=== PATIENT | male | born 1960 | race Caucasian/White ===

== ENCOUNTER → 2018-12-14 | Outpatient (CLI) | payer OTHER ==
[2018-12-14 07:24] LABS: POTASSIUM 3.9 mmol/L (3.5-5.1)
== END ==
LOC: M.LAB 01:06
PROVIDERS: Student in an Organized Health Care Education/Training Program
DX: E87.6 Hypokalemia (principal)

== ENCOUNTER 2019-06-13 20:34 | Inpatient (IN) | payer OTHER ==
[~2019-06-13] VITALS: Ht 170.2 cm; Wt 124.7 kg
[2019-06-13 20:41] VITALS: BP 197/105
[2019-06-13] MEDS ORDERED: HYDROCHLOROTHIAZIDE (20:45)
[2019-06-13] MEDS ORDERED: LISINOPRIL (20:45)
[2019-06-13] MEDS ORDERED: METFORMIN (20:46)
[2019-06-13] MEDS ORDERED: ATORVASTATIN (20:46)
[2019-06-13] MEDS ORDERED: JARDIANCE SUBQ (20:46)
[2019-06-13 20:58] LABS: ABSOLUTE BASOPHILS 0.1 thou/uL (0.0-0.2); ABSOLUTE EOSINOPHILS 0.3 thou/uL (0.0-0.7); ABSOLUTE LYMPHOCYTES 3.1 thou/uL (0.8-5.3); ABSOLUTE MONOCYTES 0.8 thou/uL (0.0-1.2); ABSOLUTE NEUTROPHILS 3.9 thou/uL (1.6-8.1); BASOPHILS 0.7 %; EOSINOPHILS 3.1 %; HEMOGLOBIN 13.6 gm/dL (14.0-18.0); LYMPHOCYTES 38.2 %; MCH 30.2 pg (26.0-34.0); MCHC 33.9 g/dL (28.0-37.0); MCV 89.2 fL (80.0-100.0); MONOCYTES 9.6 %; MPV 8.2 fl. (7.2-11.1); NUCLEATED RBCS 0 /100WBC; PLATELET COUNT* 277 thou/uL (150-400); POLYS 48.4 %; RBC 4.49 mil/uL (4.50-6.00); RDW-CV 13.6 % (10.5-14.5); WBC 8.1 thou/uL (4.0-11.0)
[2019-06-13 21:08] LABS: PROTIME 9.8 Seconds (9.20-11.50)
[2019-06-13 21:21] LABS: CALCIUM 9.4 mg/dL (8.5-10.1); CREATININE 0.8 mg/dL (0.6-1.3); POTASSIUM 4.1 mmol/L (3.5-5.1)
[2019-06-13 21:32] LABS: ALBUMIN 3.6 g/dL (3.4-5.0); TOTAL BILIRUBIN 0.2 mg/dL (<0.1-1.0); TOTAL PROTEIN 7.1 g/dL (6.4-8.2)
[2019-06-13 22:43] VITALS: BP 189/85
[2019-06-13 23:00] VITALS: BP 139/95
[2019-06-14 04:00] VITALS: BP 149/80
[2019-06-14 08:00] VITALS: BP 145/67
[2019-06-14 09:45] LABS: CHOLESTEROL 245 mg/dL (<200); HDL CHOLESTEROL 35 mg/dL (>40); LDL CHOLESTEROL 176 mg/dL (<100); TRIGLYCERIDE 173 mg/dL (<150); VLDL 35 mg/dL (<40)
[2019-06-14 09:57] LABS: SERUM ASSESSMENT Clear
[2019-06-14 11:57] VITALS: BP 180/97
[2019-06-14 14:22] LABS: AMP/METHAMP Negative (Negative); BARBITURATES Negative (Negative); BENZODIAZEPINES Negative (Negative); COCAINE Negative (Negative); METHADONE Negative (Negative); OPIATES Negative (Negative); PCP Negative (Negative); THC Negative (Negative)
--- NOTE | 2019-06-14 14:48 | NUR ---
Pt out of the room at stress test, will f/u later
[2019-06-14 16:00] VITALS: BP 186/90
--- NOTE | 2019-06-14 18:51 | NUR ---
PT VSS WITH THE EXCEPTION OF HYPERTENSION, SR ON TELE, PT UP AD THA, PT HAD STRESS TEST TODAY, WILL BE NPO AT MIDNIGHT TO COMPLETE RESTING PORTION OF STRESS TEST TOMORROW. HOURLY ROUNDING PERFORMED, POSSESSIONS AND CALL LIGHT WITHIN REACH.
[2019-06-14 20:00] VITALS: BP 179/91
--- NOTE | 2019-06-14 20:00 | NUR ---
RECEIVED REPORT AND ASSUMED CARE OF PT, ASSESSMENT COMPLETED AT THIS TIME. SITTING UP IN CHAIR VISITING WITH . DENIES CHEST PAIN OR OTHER COMPLAINTS. DISCUSSED COMPLETION OF STRESS TEST TOMORROW. MARIXA ANKLES WITH 1+ EDEMA DUE TO DEPENDENCE MOST OF DAY. TELEMETRY ON SHOWING SR. WILL CONT TO MONITOR AND ASSIST NEEDED.
[2019-06-15] VITALS: BP 171/85
[2019-06-15 04:00] VITALS: BP 171/83
[2019-06-15 06:04] LABS: CALCIUM 9.7 mg/dL (8.5-10.1); CREATININE 0.7 mg/dL (0.6-1.3); POTASSIUM 4.3 mmol/L (3.5-5.1)
--- NOTE | 2019-06-15 06:58 | NUR ---
AWAKE MOST OF NIGHT. UNABLE TO SLEEP. NO COMPLAINTS VOICED. ASSESSMENT UNCHANGED. TELEMETRY CONT TO SHOW SR. HS GOALS OF REST AND SAFETY ACHIEVED. HOURLY ROUNDING OBSERVED.
[2019-06-15 08:36] VITALS: BP 134/94
--- NOTE | 2019-06-15 08:39 | EKG ---
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1960 Requested By: Mariella Pope Order Number: [id number] MD: Dm Lozano Measurements Intervals [place] Rate: 95 P: 7 ID: 180 QRS: -11 QRSD: 106 T: 14 QT: 349 QTc: 439 Interpretive Statements Sinus rhythm Inferior infarct, old Delayed R-wave progression Baseline wander in lead(s) V2,V4 Compared to ECG 06/05/2006 08:20:57 Myocardial infarct finding now present Electronically Signed On 06-15-2019 8:38:54 CDT by Dm Lozano [email or web address] <ELECTRONICALLY SIGNED> By: Dm Lozano MD, FACC 06/15/1937 37 37 Dm Lozano MD, FAC /EPI
[2019-06-15 11:49] VITALS: BP 184/95
--- NOTE | 2019-06-15 11:59 | NUR ---
ASSUMED CARE OF PT AROUND 0730 THIS AM. REFER TO ASSESSMENT. PT COMPLETING DAY 2 STRESS TEST TODAY. VERBAL ORDER FROM PHYSICIAN THAT IF CARDIOLOGY OK WITH DC POST STRESS TEST TO CALL FOR DC ORDERS. PT HAS NO FURTHER COMPLAINTS OF CHEST PAIN. NO OTHER CONCERNS AT THIS TIME. CLWR. WCTM.
--- NOTE | 2019-06-15 12:29 | CARDNUC ---
[place] [address] CARDIAC NUCLEAR IMAGING REPORT Name: KAYCE VIERA Room: [address] IN [facility]#: [id number] Admission: 06/13/19 Attend Phys: Clarence Dior, Discharge: Date of : 62 Date of Service: 06/15/19 1229 Report #: [id number] THIS REPORT FOR: //name// APPROVED REPORT Study performed: 06/14/2019 09:20:00 Indication: Chest pain, Dyspnea, Diaphoresis, Dizziness. Patient Location: In-Patient Room #: [facility] Stress Tech: Dian Ward Stress Nurse: Syeda Cabezas RN Ht: 5 ft 7 in Wt: 275 lbs BSA: 2.32 m2 BMI: 43.06 Medical History Medical History: Angina, Diabetes, Former Smoker, HTN, Hyperlipidemia, Obesity , RBBB, SOB, Diaphoresis, Flushed, Dizziness. Medications: Home meds include Atorvastatin, HCTZ, Jardiance, Lisinopril, Metformin. Allergies: No known drug allergies Cardiac Risk Factors: Age, DM, FHX of CAD, HTN, Hyperlipidemia, SOB, Past Smoker, RBBB, Obesity. Previous Cardiac Procedures: None Pretest Chest Pain Characteristics: No chest pain Exercise History: Indeterminate Physical Disabilities: Lightheaded, Dizzy. Meds Held (24 hrs): All meds. Resting Data Rest SPECT myocardial perfusion imaging was performed in supine position 30 minutes following the intravenous injection of 34.0 mCi of Tc-99m Sestamibi. Time of rest injection: 0940 Date: 06/15/2019 The images were gated to evaluate regional wall motion and calculate left ventricular ejection fraction. Administration Route: IV Administration Site: Right Arm Pharmacologic Stress Pharmacologic stress test was performed by injecting Regadenoson 0.4 mg IV push over 10-15 seconds immediately followed by the intravenous injection of 25.3 mCi of Tc-99m Sestamibi. Time of stress injection: 15:05 Date: 06/14/2019 [place] [address] CARDIAC NUCLEAR IMAGING REPORT Name: KAYCE VIERA Room: [address]#: [id number] Admission: 06/13/19 Attend Phys: Clarence Dior, Discharge: Date of : 62 Date of Service: 06/15/19 1229 Report #: [id number] Administration Route: IV Administration Site: Right Arm Heart Rate at time of stress injection: 107 bpm. Gated Stress SPECT was performed 40 minutes after stress injection. The images were gated to evaluate regional wall motion and calculate left ventricular ejection fraction. Prone imaging was performed. Stress Test Details Stress Test: Pharmacologic stress testing performed using 0.4 mg of regadenoson per 5 mL given IV over 10 seconds. Reason for pharmacologic stress test: Lightheaded, Dizzy.. HR Max Heart Rate (APMHR): 162 bpm Resting HR: 71 bpm Target HR (85% APMHR): 137 bpm Max HR Achieved: 107 bpm % of APMHR: 66 Recovery HR: 92 bpm BP Resting BP: 152/88 mmHg Max BP: 185/96 mmHg Recovery BP: 183/98 mmHg ECG Resting ECG: Sinus Rhythm Stress ECG: Sinus Tachycardia ST Change: None Arrhythmia: None Recovery ECG: Sinus Rhythm Recovery ST Change: None Recovery Arrhythmia: None Clinical Reason for Termination: Completed protocol Stress Symptoms: Dyspnea, Flushed, Quick come and go- sharp CP 4/10. Exercise duration: 00 min 00 sec Exercise capacity: 1.00 METs The patient tolerated Lexiscan infusion without significant cardiac symptoms. Nurse Comments A 59 YEAR OLD MALE INPATIENT PRESENTED WITH C/O RECENT CP, DYSPNEA, DIAPHORESIS AND DIZZINESS. PATIENT TOLERATED SITTING LEXISCAN WELL. RECOVERY UNREMARKABLE WITH PO CAFFEINE, [place] [address] CARDIAC NUCLEAR IMAGING REPORT Name: KAYCE VIERA Room: [address] IN ..#: [id number] Admission: 06/13/19 Attend Phys: Clarence Dior, Discharge: Date of : 62 Date of Service: 06/15/19 1229 Report #: [id number] ESCORTED VIA WHEELCHAIR BY STAFF TO NUCLEAR MEDICINE FOR IMAGES. PATIENT WAS STABLE WITH NO COMPLAINTS AT THAT TIME. Stress ECG Conclusion The baseline 12-lead EKG shows sinus rhythm without significant Mr. T wave abnormality. EKGs obtained during and post Lexiscan infusion show sinus rhythm and sinus tachycardia with no significant ST or T wave changes when compared baseline. There were no stress-induced arrhythmias. Study Quality Study: Good Artifact: No artifact Study Data At rest, the left ventricular ejection fraction was 75%.. Post stress, the left ventricular ejection was 61%.. TID = 1.23. Perfusion Perfusion images obtained at rest and post stress in the supine position show uniform uptake of the radioisotope throughout the myocardium without defect. Wall Motion Normal left ventricular wall motion. Nuclear Conclusion ECG Findings: negative for ischemia Clinical Findings: negative for ischemia Nuclear Findings: negative for ischemia Exercise Capacity: not assessed Left Ventricular Function: normal Risk Study: low Myocardial perfusion images show no defect to suggest infarct or ischemia. Left ventricular systolic function appears normal on gated studies. This is a low risk study. <Conclusion> The baseline 12-lead EKG shows sinus rhythm without significant Mr. T wave abnormality. EKGs obtained during and post Lexiscan infusion show sinus rhythm and sinus tachycardia with no significant ST [place] [address] CARDIAC NUCLEAR IMAGING REPORT Name: KAYCE VIERA [place] Room: [address] IN [facility]#: [id number] Admission: 06/13/19 Attend Phys: Clarence Dior, Discharge: Date of : 62 Date of Service: 06/15/19 1229 Report #: [id number] wave changes when compared baseline. There were no stress-induced arrhythmias. <ELECTRONICALLY SIGNED> By: Dm Lozano MD, FACC 06/15/199 28 28 Dm Lozano MD, FACC /INF
--- NOTE | 2019-06-15 12:37 | NUR ---
Pt is A&O. Resides at home with his . Independent. No DME. No hx of HH or SNF. Plan second part of stress test, dc after stress if negative. No needs anticipated.
[2019-06-15] MEDS ORDERED: GLUCOPHAGE1000 MG PO (14:08)
[2019-06-15] MEDS ORDERED: HYDROCHLOROTHIA25 M2 PO (14:08)
[2019-06-15] MEDS ORDERED: LIPITOR 40 MG T40 M1 PO (14:08)
[2019-06-15] MEDS ORDERED: TESSALON PERLE100 MG PO (14:08)
[2019-06-15 14:34] VITALS: BP 184/95
== END 2019-06-15 15:15 | disposition home or self-care (01) | DRG 313 ==
LOC: M.ERS 20:34 → M.TBA-ER 22:09 → M.2W 22:09
PROVIDERS: Emergency Medicine; Family Medicine; Registered Nurse; ADMIT Internal Medicine
DX: R07.89 Other chest pain (principal); Z68.41 Body mass index [BMI] 40.0-44.9, adult; E11.9 Type 2 diabetes mellitus without complications; G43.909 Migraine, unspecified, not intractable, without status migrainosus; I10 Essential (primary) hypertension; E78.5 Hyperlipidemia, unspecified; G47.33 Obstructive sleep apnea (adult) (pediatric); Z99.81 Dependence on supplemental oxygen; Z82.49 Family history of ischemic heart disease and other diseases of the circulatory system; Z83.49 Family history of other endocrine, nutritional and metabolic diseases; Z79.899 Other long term (current) drug therapy; Z79.84 Long term (current) use of oral hypoglycemic drugs; Z87.891 Personal history of nicotine dependence